=== PATIENT | male | born 1990 | race Caucasian/White ===

== ENCOUNTER 2021-12-13 05:05 | Emergency (ER) | payer OTHER ==
[2021-12-13 05:17] VITALS: BP 112/66; PULSE 60; TEMP 98.2; BMI 29.0
[2021-12-13] MEDS ORDERED: DEXAMETHASONE LIQUID 0.5 MG/5 ML PO ONE (05:40)
[2021-12-13] MEDS ORDERED: DEXAMETHASONE SOD PHOSPHATE 10 MG/1 ML VIAL ONE (06:00)
[2021-12-13 06:25] LABS: THROAT:GRP A STREP NOT DETECTED (NOTDETECTED)
[2021-12-14 12:08] LABS: SARS-CoV-2 NAA Not Detected (Not Detected)
== END 2021-12-13 06:15 | disposition home or self-care (01) ==
LOC: JER 05:05
DX: J02.9 Acute pharyngitis, unspecified (principal)
CPT/HCPCS: 87651; 99283-25; C9803; U0003; U0005

== ENCOUNTER 2022-06-29 11:42 | Inpatient (IN) | payer OTHER ==
[2022-06-29] MEDS ORDERED: ONDANSETRON 4 MG/2 ML VIAL ONE (12:46)
[2022-06-29] MEDS ORDERED: SODIUM CHLORIDE 1,000 ML IV STA (12:48)
[2022-06-29 13:51] LABS: BASO % 0.7 % (0-2.0); EOS % 4.1 % (0-4.5); HEMATOCRIT 44.1 % (35.4-49); LYMPH % 26.9 % (8-40); MCH 32.1 pg (25.7-33.7); MEAN CELL VOLUME 94.4 fl (80-96); MEAN PLT VOLUME 8.3 fl (7.5-11.1); MONO % 7.4 % (3.8-10.2); NEUT % 60.9 % (42.8-82.8); PLATELET COUNT 219 10^3/uL (134-434); RBC 4.67 M/mm3 (4.00-5.60); RDW 12.9 % (11.9-15.9); WHITE BLOOD COUNT 5.1 K/mm3 (4.0-10.0)
[2022-06-29 14:04] LABS: INR 1.08 (0.83-1.09); PROTHROMBIN TIME (PATIENT) 12.4 SEC (9.7-13.0)
[2022-06-29 14:13] LABS: ACTIVATED PTT 29.6 SECONDS (25.2-36.5)
[2022-06-29 14:19] LABS: CALCIUM 8.6 mg/dL (8.5-10.1)
[2022-06-29 14:20] LABS: ALBUMIN 3.8 g/dl (3.4-5.0); BLOOD UREA NITROGEN 12.5 mg/dL (7-18)
[2022-06-29 14:23] LABS: CREATININE 1.1 mg/dL (0.55-1.3)
[2022-06-29 14:24] LABS: BILIRUBIN,TOTAL 1.5 mg/dL (0.2-1); TOT PROT 7.2 g/dl (6.4-8.2)
[2022-06-30] MEDS ORDERED: SODIUM CHLORIDE 1,000 ML IV SCH ×2 (00:45→04:12)
[2022-06-30 01:20] LABS: MAGNESIUM 1.8 mg/dL (1.8-2.4)
[2022-06-30 01:25] LABS: COCAINE, UR NEGATIVE (NEGATIVE)
[2022-06-30 01:26] LABS: METHADONE, UR NEGATIVE (NEGATIVE); OPIATES, URI NEGATIVE (NEGATIVE); URINE BARBITURATES NEGATIVE (NEGATIVE); URINE BENZODIAZEPINES NEGATIVE (NEGATIVE)
[2022-06-30 01:40] LABS: PHENCYCLIDINE,URINE NEGATIVE (NEGATIVE); URINE AMPHETAMINES NEGATIVE (NEGATIVE)
[2022-06-30 04:29] VITALS: BMI 31.9
[2022-06-30 06:27] LABS: BASO % 0.8 % (0-2.0); EOS % 5.2 % (0-4.5); HEMOGLOBIN 13.9 GM/dL (11.7-16.9); MCH 32.1 pg (25.7-33.7); MEAN CELL VOLUME 94.3 fl (80-96); MEAN PLT VOLUME 8.2 fl (7.5-11.1); MONO % 8.7 % (3.8-10.2); NEUT % 43.3 % (42.8-82.8); PLATELET COUNT 210 10^3/uL (134-434); RBC 4.35 M/mm3 (4.00-5.60); RDW 12.7 % (11.9-15.9); WHITE BLOOD COUNT 5.3 K/mm3 (4.0-10.0)
[2022-06-30 06:54] LABS: CALCIUM 8.3 mg/dL (8.5-10.1)
[2022-06-30 06:55] LABS: ALBUMIN 3.6 g/dl (3.4-5.0); BLOOD UREA NITROGEN 13.6 mg/dL (7-18)
[2022-06-30 07:00] LABS: BILIRUBIN,TOTAL 0.7 mg/dL (0.2-1); TOT PROT 6.6 g/dl (6.4-8.2)
[2022-06-30 07:32] LABS: N-TERMINAL BNP 56.2 pg/ml (5-125)
[2022-06-30] MEDS ORDERED: MUPIROCIN 2% TOPICAL OINTMENT FOR DECOLONIZATION NS SCH (10:00)
[2022-06-30] MEDS ORDERED: ENOXAPARIN NA (PORCINE) 40 MG/0.4 ML DISP.SYRIN SQ SCH ×2 (10:00)
[2022-06-30 10:14] LABS: ERYTHROCYTE SEDIMENTATION RATE 5 mm/hr (0-10)
[2022-06-30 13:03] VITALS: BP 123/71; PULSE 65; RESP 22
[2022-06-30 13:40] VITALS: TEMP 98.3
[2022-06-30] MEDS ORDERED: CHLORHEXIDINE GLUCONATE 4% CLEANSER FOR DECOLONIZATION TP SCH (22:00)
== END 2022-06-30 15:15 | disposition home or self-care (01) | DRG 201 ==
LOC: JER 11:42 → JERBED 16:20 → JICU 06-30 04:07 → OBSVTOIN 06-30 07:51
PROVIDERS: ADMIT Internal Medicine; ATTEND Internal Medicine Pulmonary Disease
DX: R00.1 Bradycardia, unspecified (principal); R07.89 Other chest pain; I45.10 Unspecified right bundle-branch block; R42 Dizziness and giddiness; G47.30 Sleep apnea, unspecified; I95.9 Hypotension, unspecified; R51.9 Headache, unspecified
CPT/HCPCS: 36415; 71046-TC-FY; 80053; 80307; 82550; 83735; 83880; 84439; 84443; 84484; 85025; 85379; 85610; 85651; 85730; 86140; 86618; 93005; 93010; 93017; 93018; 93306-TC; 99285-25; C9803-CS; G0378; U0003; U0005